=== PATIENT | female | born 1980 | race Caucasian/White ===

== ENCOUNTER 2019-05-20 08:18 | Emergency (ER) | payer BC ==
[~2019-05-20] VITALS: Ht 154.9 cm; Wt 61.2 kg
[~2019-05-20 08:18] MED LIST: NOHOMEMEDICATIONS; PHENERGAN 25 MG25 M1 PO; PHENERGAN 25 MG25 MG PO
[2019-05-20 08:38] LABS: URINE BLOOD NEGATIVE (Negative); URINE CLARITY CLEAR; URINE COLOR YELLOW; URINE GLUCOSE-RANDOM NEGATIVE (Negative); URINE KETONES NEGATIVE (Negative); URINE LEUKOCYTES-REFLEX NEGATIVE (Negative); URINE NITRITE-REFLEX NEGATIVE (Negative); URINE PROTEIN TRACE (Negative); URINE SPECIFIC GRAVITY >= 1.030 (1.005-1.030); URINE UROBILINOGEN 0.2 E.U./dl (0.2-1.0)
[2019-05-20 08:39] LABS: ICTOTEST (BILI CONFIRMATORY) Negative (Negative); URINE BILIRUBIN 1+ (Negative)
[2019-05-20 08:46] LABS: ABSOLUTE LYMPHOCYTES 0.9 thou/uL (0.8-5.3); ABSOLUTE MONOCYTES 0.5 thou/uL (0.0-1.2); ABSOLUTE NEUTROPHILS 8.2 thou/uL (1.6-8.1); BASOPHILS 0.4 %; EOSINOPHILS 0.4 %; HEMATOCRIT 36.1 % (37.0-47.0); HEMOGLOBIN 12.7 gm/dL (12.0-15.0); LYMPHOCYTES 9.6 %; MCH 31.5 pg (26.0-34.0); MCHC 35.3 g/dL (28.0-37.0); MCV 89.2 fL (80.0-100.0); MONOCYTES 5.1 %; MPV 7.1 fl. (7.2-11.1); NUCLEATED RBCS 0 /100WBC; PLATELET COUNT* 306 thou/uL (150-400); POLYS 84.5 %; RBC 4.04 mil/uL (4.20-5.00); RDW-CV 13.3 % (10.5-14.5); WBC 9.7 thou/uL (4.0-11.0)
[2019-05-20 08:55] LABS: CALCIUM 8.4 mg/dL (8.5-10.1); CREATININE 0.8 mg/dL (0.6-1.3); POTASSIUM 3.4 mmol/L (3.5-5.1)
[2019-05-20 08:59] LABS: ALBUMIN 3.5 g/dL (3.4-5.0); TOTAL BILIRUBIN 0.8 mg/dL (<0.1-1.0); TOTAL PROTEIN 6.8 g/dL (6.4-8.2)
[2019-05-20] MEDS ORDERED: ZOFRAN ODT4 MG DISSOLVE (10:55)
[2019-05-20] MEDS ORDERED: NORCO 5-325 TA1 EAC1 PO (10:55)
[2019-05-20 11:06] VITALS: BP 96/54
== END 2019-05-20 11:42 | disposition home or self-care (01) ==
LOC: M.ERS 08:18
PROVIDERS: Emergency Medicine Emergency Medical Services
DX: R10.31 Right lower quadrant pain (principal); M54.5 Low back pain; R11.2 Nausea with vomiting, unspecified; Z90.710 Acquired absence of both cervix and uterus

== ENCOUNTER 2020-03-02 13:18 | Emergency (ER) | payer BC ==
[~2020-03-02] VITALS: Ht 154.9 cm; Wt 63.5 kg
[~2020-03-02 13:18] MED LIST changes: +NORCO 5-325 TA1 EAC1 PO; +ZOFRAN ODT4 MG DISSOLVE
[2020-03-02 13:43] LABS: URINE BILIRUBIN NEGATIVE (Negative); URINE BLOOD NEGATIVE (Negative); URINE CLARITY CLEAR; URINE COLOR YELLOW; URINE GLUCOSE-RANDOM NEGATIVE (Negative); URINE KETONES TRACE (Negative); URINE LEUKOCYTES-REFLEX NEGATIVE (Negative); URINE NITRITE-REFLEX NEGATIVE (Negative); URINE PROTEIN NEGATIVE (Negative); URINE SPECIFIC GRAVITY 1.025 (1.005-1.030); URINE UROBILINOGEN 0.2 E.U./dl (0.2-1.0)
[2020-03-02 13:53] LABS: CALCIUM 9.5 mg/dL (8.5-10.1); CREATININE 0.8 mg/dL (0.6-1.3); POTASSIUM 3.5 mmol/L (3.5-5.1)
[2020-03-02 13:59] LABS: ABSOLUTE EOSINOPHILS 0.1 thou/uL (0.0-0.7); ABSOLUTE LYMPHOCYTES 2.5 thou/uL (0.8-5.3); ABSOLUTE MONOCYTES 0.4 thou/uL (0.0-1.2); ABSOLUTE NEUTROPHILS 5.2 thou/uL (1.6-8.1); BASOPHILS 0.5 %; EOSINOPHILS 1.3 %; HEMATOCRIT 39.6 % (37.0-47.0); HEMOGLOBIN 13.2 gm/dL (12.0-15.0); MCH 30.1 pg (26.0-34.0); MCHC 33.3 g/dL (28.0-37.0); MCV 90.2 fL (80.0-100.0); MONOCYTES 4.8 %; MPV 7.2 fl. (7.2-11.1); NUCLEATED RBCS 0 /100WBC; PLATELET COUNT* 432 thou/uL (150-400); POLYS 63.4 %; RBC 4.39 mil/uL (4.20-5.00); RDW-CV 13.8 % (10.5-14.5); WBC 8.3 thou/uL (4.0-11.0)
[2020-03-02 14:03] LABS: ALBUMIN 4.2 g/dL (3.4-5.0); TOTAL BILIRUBIN 0.6 mg/dL (<0.1-1.0); TOTAL PROTEIN 7.3 g/dL (6.4-8.2)
[2020-03-02] MEDS ORDERED: HYDROCODON-ACE1 EAC7 PO (15:31)
[2020-03-02] MEDS ORDERED: CARAFATE1 GM/10 ML PO (15:33)
[2020-03-02] MEDS ORDERED: OMEPRAZOLE 20 M20 M1 PO (15:33)
[2020-03-02] MEDS ORDERED: ZOFRAN ODT4 MG PO (15:33)
[2020-03-02 15:49] VITALS: BP 132/65
--- NOTE | 2020-03-02 16:20 | EKG ---
[place] [address] ELECTROCARDIOGRAM REPORT Name: JUSTUS FELDER Room: [facility]#: [id number] Admission: 03/02/20 Attend Phys: Discharge: 03/02/20 Date of : 82 Date of Service: 03/02/20 1358 Report #: [id number] THIS REPORT FOR: //name// [facility] ED Test Date: 2020-03-02 Test Time: 13:58:44 Pat Name: JUSTUS FELDER Department: Room: Gender: F Human Resources Assistant: [facility] : 1980 Requested By: Anyi Albright Order Number: [id number] : lVad Wright Measurements Intervals Ryan Rate: 77 P: 73 ID: [id number] QRS: 61 QRSD: 102 T: 23 QT: 394 QTc: 446 Interpretive Statements Sinus rhythm No previous ECG available for comparison Electronically Signed On 03-02-2020 16:20:08 [employer] by Vlad Wright [email or web address] <ELECTRONICALLY SIGNED> By: Vlad Wright MD, [facility] 03/02/20 1620 1358 1358 Vlad Wright MD, FACC /EPI
== END 2020-03-02 15:49 | disposition home or self-care (01) ==
LOC: M.ERS 13:18
PROVIDERS: Nurse Practitioner Family
DX: K29.60 Other gastritis without bleeding (principal); R10.13 Epigastric pain; Z90.710 Acquired absence of both cervix and uterus

== ENCOUNTER → 2020-07-13 | Outpatient (CLI) | payer BC ==
[~2020-07-13] MED LIST changes: +CARAFATE1 GM/10 ML PO; +HYDROCODON-ACE1 EAC7 PO; +OMEPRAZOLE 20 M20 M1 PO; +ZOFRAN ODT4 MG PO
== END ==
LOC: M.CT 10:21
PROVIDERS: ATTEND Internal Medicine Critical Care Medicine
DX: R91.1 Solitary pulmonary nodule (principal); R91.8 Other nonspecific abnormal finding of lung field; F17.200 Nicotine dependence, unspecified, uncomplicated